=== PATIENT | male | born 1965 | race Caucasian/White ===

== ENCOUNTER 2018-01-16 14:43 | Emergency (ER) | payer OTHER ==
[~2018-01-16] VITALS: Ht 167.6 cm; Wt 99.8 kg
[2018-01-16 15:43] LABS: ABSOLUTE BASOPHIL COUNT 0 /CUMM (0.0-0.2); ABSOLUTE EOSINOPHIL COUNT 0.2 /CUMM (0.0-0.7); ABSOLUTE LYMPH COUNT 1.1 /CUMM (1.2-3.4); ABSOLUTE MONOCYTE COUNT 0.5 /CUMM (0.10-0.60); BASOPHIL % 0.3 % (0.0-2.0); EOSINOPHIL % 1.8 % (0-5); GRANULOCYTE % 79.3 % (42.2-75.2); HEMATOCRIT 41.7 % (42-52); MEAN CORPUSCULAR HGB 27.9 PG (27.0-31.0); MEAN PLATELET VOLUME 7.6 FL (7.4-10.4); PLATELET COUNT 185 /CUMM (130-400); RBC DISTRIBUTION WIDTH 13.1 % (11.5-14.5); RED BLOOD CELL CT 5.08 /CUMM (4.70-6.10); WHITE BLOOD CELL COUNT 8.9 /CUMM (4.8-10.8)
--- NOTE | 2018-01-16 15:44 | ED GENERAL ADULT ---
History of Present Illness General Chief Complaint: General Adult Stated Complaint: "I THINKI HAVE A KIDNEY STONE" Source: patient Exam Limitations: no limitations Vital Signs & Intake/Output Vital Signs & Intake/Output ED Intake and Output 01/17 0000 01/16 1200 Intake Total 1000 Output Total 300 Balance 700 Intake, IV 1000 Output, Urine 300 Patient 220 lb Weight Weight Reported by Patient Measurement Method Allergies Uncoded Allergies: SSRI (CRAMPS 01/16/18) Triage Note: PT C/O B/L FLANK PAIN STATES EARLIER IT RADIATED INTO GROIN. STATES HE HAS BEEN DRINKING LOTS OF LIQUIDS AND URINATING A LOT BECAUSE HE THINKS HE HAS KIDNEY STONES. STATES HE WAS HAVING DIFFICULTY URINATING EARLIER IN THE WEEK Triage Nurses Notes Reviewed? yes Onset: Gradual Duration: week(s): (1), changing over time, continues in ED Timing: single episode today Injury Environment: home Severity: moderate, severe Severity Numbers: 8 No Modifying Factors: none Associated Symptoms: back pain HPI: 52-year-old male past medical history of hypertension, hyperlipidemia, opioid dependence presents for evaluation of back pain. Patient states that symptoms started about one week ago and has been constant. The pain is located in both sides of his lower back. He states that it is worse with movement. He denies any trauma or known triggering event. He states that he has been drinking lots of water because he thought it may be a kidney stone. He states he has a history of an enlarged prostate and some that it is difficult for him to urinate. There's been no bowel or bladder dysfunction or incontinence. No numbness or tingling no fever. He does report some intermittent groin pain but no abdominal pain. No hematuria dysuria chest pain or shortness of breath. He has not been taking any medicine for this. (Golden Perdomo) Past History Travel History Traveled to [place] past 21 day No Medical History Any Pertinent Medical History? see below for history Cardiovascular: hypertension, hyperlipidemia Psychiatric: opioid dependence Surgical History Surgical History: non-contributory Psychosocial History What is your primary language Indonesian Tobacco Use: Current Daily Use Daily Tobacco Use Amount/Type: => 5 Cigarettes daily ETOH Use: denies use Illicit Drug Use: denies illicit drug use Family History Hx Contributory? No (Golden Perdomo) Review of Systems Review of Systems Constitutional: Reports: no symptoms. EENTM: Reports: no symptoms. Respiratory: Reports: no symptoms. Cardiovascular: Reports: no symptoms. GI: Reports: no symptoms. Genitourinary: Reports: no symptoms. Musculoskeletal: Reports: see HPI, back pain, muscle pain, muscle stiffness. Skin: Reports: no symptoms. Neurological/Psychological: Reports: no symptoms. Hematologic/Endocrine: Reports: no symptoms. Immunologic/Allergic: Reports: no symptoms. All Other Systems: Reviewed and Negative (Golden Perdomo) Physical Exam Physical Exam General Appearance: well developed/nourished, no apparent distress, alert, awake Head: atraumatic, normal appearance Eyes: Bilateral: normal appearance, PERRL, EOMI. Ears, Nose, Throat: hearing grossly normal Neck: normal inspection, supple, full range of motion Respiratory: normal breath sounds, chest non-tender, no respiratory distress, lungs clear Cardiovascular: regular rate/rhythm, normal peripheral pulses Peripheral Pulses: 2+ radial (R), 2+ radial (L) Gastrointestinal: normal bowel sounds, soft, non-tender, no organomegaly Back: normal inspection, normal range of motion (WITH PAIN ), vertebral tenderness, NO cva TENDERNESS. lUMBAR SPINE AND PARASPINOUS MUSCLES TENDER TO PALPATION BILATERALLY. nO STEP-OFFS OR DEFORMITIES NO BRUISING SWELLING OR ABRASIONS NO RASHES Extremities: normal inspection, normal range of motion, straight leg raised ( NEGATIVE) Neurologic/Psych: no motor/sensory deficits, awake, alert, oriented x 3, normal gait (WITH PAIN), normal mood/affect Reflexes: 2+: knee (R), knee (L). Skin: intact, normal color, warm/dry Core Measures ACS in differential dx? No CVA/TIA Diagnosis: No Sepsis Present: No Sepsis Focused Exam Completed? No (Golden Perdomo) Progress Differential Diagnoses I considered the following diagnoses in my evaluation of the patient: [Muscle strain, herniated disc, cauda equina, sciatica, kidney stone, pyelonephritis/UTI ] Plan of Care: Orders Procedure Date/time Status URINALYSIS 01/16 1449 Complete COMPREHENSIVE METABOLIC PANEL 01/16 1449 Complete CBC WITHOUT DIFFERENTIAL 01/16 1449 Complete Laboratory Tests 01/16/18 1647: Urine Color YEL, Urine Clarity CLEAR, Urine pH 7.0, Ur Specific Carroll 1.010, Urine Protein NEG, Urine Ketones NEG, Urine Nitrite NEG, Urine Bilirubin NEG, Urine Urobilinogen 0.2, Ur Leukocyte Esterase NEG, Ur Microscopic EXAM NOT REQUIRED, Urine Hemoglobin NEG, Urine Glucose NEG 01/16/18 1533: Anion Gap 8, Estimated GFR > 60, BUN/Creatinine Ratio 20.0, Glucose 124 H, Calcium 9.2, Total Bilirubin 0.8, AST 20, ALT 30, Alkaline Phosphatase 87, Total Protein 6.8, Albumin 3.9, Globulin 2.9, Albumin/Globulin Ratio 1.3, CBC w Diff NO MAN DIFF REQ, RBC 5.08, MCV 82.0, MCH 27.9, MCHC 34.0, RDW 13.1, MPV 7.6, Gran % 79.3 H, Lymphocytes % 12.7 L, Monocytes % 5.9, Eosinophils % 1.8, Basophils % 0.3, Absolute Granulocytes 7.0 H, Absolute Lymphocytes 1.1 L, Absolute Monocytes 0.5, Absolute Eosinophils 0.2, Absolute Basophils 0 Patient seen and evaluated. His pain is very reproducible with range of motion. Is located mostly in his lower back. Currently no flank abdominal or groin pain. Urine does not show any signs of infection or blood. CT scan is negative for any obstructing kidney stones. There is evidence of possible renal cell carcinoma. Patient will be given urology follow-up. Patient states he goes to the [facility] and will have care there. He does not want a urologist from here. Patient was instructed to rest and plenty fluids avoid excessive physical activity. Tylenol ibuprofen Robaxin as needed. Medrol Dosepak as directed. Discussed return to caution's in detail patient appearR well he agrees the plan. Diagnostic Imaging: Viewed by Me: CT Scan. Discussed w/RAD: CT Scan. Radiology Impression: PATIENT: JORGE LUIS WAYNE PRESENT AGE: 52 PATIENT ACCOUNT NO: [id number] : 67 LOCATION: [facility] ORDERING PHYSICIAN: Pablito Vargas MD SERVICE DATE: 01/16/18242 EXAM TYPE: CAT - CT ABD & PELVIS W/O IV CONTRAS EXAMINATION: CT ABDOMEN AND PELVIS WITHOUT CONTRAST CLINICAL INFORMATION: 52-year-old male with flank pain. Evaluate for kidney stone. COMPARISON: CT images of the abdomen from 06/02/2013. TECHNIQUE: Multidetector volumetric imaging was performed from the superior aspect of the liver through the pubic symphysis. Sagittal and coronal reformatted images were obtained on the technologist's workstation. DLP: 1995 mGy-cm (for CT exams of the abdomen and lumbar spine) FINDINGS: LUNG BASES: No acute findings. Old, 0.3 cm calcified granuloma of the right lower lobe. Atherosclerotic calcification of coronary arteries. LIVER, GALLBLADDER, AND BILIARY TREE: Liver has normal size, contour and attenuation. No evidence of hepatic mass or intrahepatic bile duct dilatation. Gallbladder is underdistended and without radiopaque calculi, wall edema or pericholecystic fluid. PANCREAS: Unremarkable. SPLEEN: Unremarkable. ADRENAL GLANDS: Unremarkable. RIGHT KIDNEY AND URETER: 2 cm hypodense, slightly exophytic lesion of the interpolar region, anteriorly, has attenuation of 15 Hounsfield units on these noncontrast images and it appears stable compared to 06/02/2013, compatible with benign renal cyst. No nephrolithiasis, hydroureteronephrosis or perinephric edema. LEFT KIDNEY AND URETER: No nephrolithiasis, hydronephrosis or perinephric edema. A solid mass containing calcifications at the lower pole the left kidney, anteriorly, measures approximately 4.7 x 3.4 x 4.4 cm, compared to 4.1 x 2.9 x 3.6 cm on 06/02/2013. BLADDER: Urinary bladder is nearly completely empty, which may account for its apparent wall thickening. Also, there might be detrusor muscle hypertrophy of the bladder wall. No focal mucosal lesion or calculus. GASTROINTESTINAL TRACT: Stomach is unremarkable. Bowel loops are normal in caliber. Appendix is normal. No evidence of inflammation or obstruction along the gastrointestinal tract. No ascites or pneumoperitoneum. ABDOMINAL WALL: No acute findings. LYMPH NODES: No pathologic sized retroperitoneal, mesenteric or iliac lymph nodes. A chronically enlarged portacaval lymph node is 1.5 cm AP, compared to 1.3 cm AP on 2012. VASCULAR: Atherosclerotic calcification of the abdominal aorta and iliac arteries without aneurysm. PELVIC VISCERA: Prostate gland is unremarkable. No pelvic free fluid. OSSEOUS STRUCTURES: No suspicious osseous lesions. There is an old bone island of the L4 vertebral body. IMPRESSION: 1. No evidence of urolithiasis or urinary tract obstruction. 2. Solid mass with calcifications at the lower pole of the left kidney has increased in size compared to 06/02/2013. This likely represents a slowly growing calcified renal cell carcinoma which currently measures 4.7 x 3.4 x 4.4 cm (compared to 4.1 x 2.9 x 3.6 cm on 2012). DICTATED BY: Maxim Wu MD DATE/TIME DICTATED:01/16/181615 SPLITTING MACHINE FEEDER:CHAVA DATE/TIME TRANSCRIBED:01/16/181615 CONFIDENTIAL, DO NOT COPY WITHOUT APPROPRIATE AUTHORIZATION. <Electronically signed in Other Vendor System> SIGNED BY: Maxim Wu MD 01/16/181635, PATIENT: JORGE LUIS WAYNE PRESENT AGE: 52 PATIENT ACCOUNT NO: [id number] : 67 LOCATION: [facility] ORDERING PHYSICIAN: Golden ALVARZE SERVICE DATE: 01/16/18 EXAM TYPE: CAT - CT LUMB SPINE WO IV CONTRAST EXAMINATION: CT LUMBAR SPINE WITHOUT CONTRAST CLINICAL INFORMATION: Low back pain. COMPARISON: None TECHNIQUE: Helical non-contrast CT images were obtained through the lumbar spine and 1.25 and 2.5 mm axial reconstructions were reviewed along with sagittal and coronal MPRs. DLP: 1995.98 mGy-cm. This dose is inclusive of imaging of the abdomen and pelvis, reported separately. FINDINGS: There are no compression fractures or subluxations. No significant disc space narrowing is evident. Mild endplate spurring is noted laterally at the L2-L4 levels. Mild disc bulge and facet arthropathy are noted at L2-L3. There is a diffuse disc bulge and endplate spurring with mild to moderate facet arthropathy at L3-L4 contributing to mild central canal stenosis and foraminal narrowing. At the L4- L5 level, there is a diffuse disc bulge and facet arthropathy with thickening of the ligamentum flavum contributing to mild to moderate central canal stenosis and ventral thecal sac deformity. There is moderate right foraminal narrowing. Endplate spurring and bulging disc contribute to moderate left foraminal encroachment. There may be a left posterolateral disc protrusion as well. At the L5-S1 level, there is a mild disc bulge and facet arthropathy without central canal stenosis. Bulging disc and endplate spurring contribute to mild to moderate foraminal narrowing, worse on the right side. The paraspinal soft tissues appear normal. A lower pole left renal mass with speckled calcifications is partially visualized and further assessed on the abdominal CT exam. When compared to an abdominal CT study from 05/2013, the mass appears to have increased in size. IMPRESSION: Multilevel lumbar spondylosis with disc bulges and facet arthropathy, more significant at L4-L5 where there is mild to moderate central canal stenosis and moderate bilateral foraminal narrowing. Potential left posterolateral disc protrusion present at this level as well. Mild central canal stenosis at L3-L4 with mild bilateral foraminal narrowing. No compression fractures or subluxations. Partially visualized mass at the lower pole of the left kidney with speckled calcifications, further described on the abdominal CT portion of this study. DICTATED BY: Pablito Snowden MD DATE/TIME DICTATED:01/16 SPLITTING MACHINE FEEDER:CHAVA DATE/TIME TRANSCRIBED:01/16/181609 CONFIDENTIAL, DO NOT COPY WITHOUT APPROPRIATE AUTHORIZATION. Initial ED EKG: none (Jhonatan ALVAREZ,Golden) Departure Departure Disposition: HOME OR SELF CARE Condition: Stable Clinical Impression Primary Impression: Low back pain Qualifiers: Chronicity: acute Back pain laterality: bilateral Sciatica presence : without sciatica Qualified Code: M54.5 - Low back pain Referrals: Unknown (PCP/Family) Additional Instructions: Rest, avoid excessive physical activity heavy lifting or bending. Take Medrol Dosepak as directed for the full course. Use ibuprofen 800 mg every 8 hours with food as needed for pain. Robaxin Is a muscle relaxer that can also be used every 8 hours as needed. This may cause drowsiness. Make a follow-up appointment with your primary care doctor urologist and back specialist as soon as possible. Monitor symptoms closely. Return with worsening pain, fever, bowel/bladder dysfunction, numbness, tingling or any other concerns. Please go over all results of today's visit with your primary care doctor. Contact your primary care doctor to let them know you were here in the emergency room. There may be nonspecific findings which may not be related to your visit today here in the emergency room but may require further evaluation and chronic monitoring by your primary care doctor. If you had a laceration today the chance of foreign body always remains. You should follow-up with your primary care doctor for recheck in 3-5 days for a wound check. If you had an x-ray done there is a chance that a fracture could have been missed on initial read and you should follow-up with your primary care doctor for repeat x-rays if symptoms persist. If your blood pressure was elevated here in the emergency room please have rechecked by her primary care doctor within the next 48 hours by your primary care doctor. If you were prescribed a narcotic here in the emergency room or any type of controlled substances you're not allowed to drive while taking this medication or operate any type of heavy machinery. Narcotics can make you feel lightheaded dizziness nausea and can cause constipation. You may need to knot picker cloth a stool softener. Thank you for choosing [facility] emergency room. Please return to the emergency room immediately if you have any other concerns worsening of symptoms. Departure Forms: Customer Survey General Discharge Information (Golden Perdomo) PA/PATENT COUNSEL Co-Sign Statement Statement: ED Attending supervision documentation- [] I saw and evaluated the patient. I have also reviewed all the pertinent lab results and diagnostic results. I agree with the findings and the plan of care as documented in the PA's/PATENT COUNSEL's documentation. [X] I have reviewed the ED Record and agree with the PA's/PATENT COUNSEL's documentation. [] Additions or exceptions (if any) to the PAs/PATENT COUNSEL's note and plan are summarized below: [] (Alicia MACIAS,Pablito Judge) Critical Care Note Critical Care Note Critical Care Time: non-applicable (Golden Perdomo)
--- NOTE | 2018-01-16 16:24 | CT SCAN REPORT ---
EXAMINATION: CT LUMBAR SPINE WITHOUT CONTRAST CLINICAL INFORMATION: Low back pain. COMPARISON: None TECHNIQUE: Helical non-contrast CT images were obtained through the lumbar spine and 1.25 and 2.5 mm axial reconstructions were reviewed along with sagittal and coronal MPRs. DLP: 1995.98 mGy-cm. This dose is inclusive of imaging of the abdomen and pelvis, reported separately. FINDINGS: There are no compression fractures or subluxations. No significant disc space narrowing is evident. Mild endplate spurring is noted laterally at the L2-L4 levels. Mild disc bulge and facet arthropathy are noted at L2-L3. There is a diffuse disc bulge and endplate spurring with mild to moderate facet arthropathy at L3-L4 contributing to mild central canal stenosis and foraminal narrowing. At the L4-L5 level, there is a diffuse disc bulge and facet arthropathy with thickening of the ligamentum flavum contributing to mild to moderate central canal stenosis and ventral thecal sac deformity. There is moderate right foraminal narrowing. Endplate spurring and bulging disc contribute to moderate left foraminal encroachment. There may be a left posterolateral disc protrusion as well. At the L5-S1 level, there is a mild disc bulge and facet arthropathy without central canal stenosis. Bulging disc and endplate spurring contribute to mild to moderate foraminal narrowing, worse on the right side. The paraspinal soft tissues appear normal. A lower pole left renal mass with speckled calcifications is partially visualized and further assessed on the abdominal CT exam. When compared to an abdominal CT study from 05/2013, the mass appears to have increased in size. IMPRESSION: Multilevel lumbar spondylosis with disc bulges and facet arthropathy, more significant at L4-L5 where there is mild to moderate central canal stenosis and moderate bilateral foraminal narrowing. Potential left posterolateral disc protrusion present at this level as well. Mild central canal stenosis at L3-L4 with mild bilateral foraminal narrowing. No compression fractures or subluxations. Partially visualized mass at the lower pole of the left kidney with speckled calcifications, further described on the abdominal CT portion of this study.
--- NOTE | 2018-01-16 16:36 | CT SCAN REPORT ---
EXAMINATION: CT ABDOMEN AND PELVIS WITHOUT CONTRAST CLINICAL INFORMATION: 52-year-old male with flank pain. Evaluate for kidney stone. COMPARISON: CT images of the abdomen from 06/02/2013. TECHNIQUE: Multidetector volumetric imaging was performed from the superior aspect of the liver through the pubic symphysis. Sagittal and coronal reformatted images were obtained on the technologist's workstation. DLP: 1995 mGy-cm (for CT exams of the abdomen and lumbar spine) FINDINGS: LUNG BASES: No acute findings. Old, 0.3 cm calcified granuloma of the right lower lobe. Atherosclerotic calcification of coronary arteries. LIVER, GALLBLADDER, AND BILIARY TREE: Liver has normal size, contour and attenuation. No evidence of hepatic mass or intrahepatic bile duct dilatation. Gallbladder is underdistended and without radiopaque calculi, wall edema or pericholecystic fluid. PANCREAS: Unremarkable. SPLEEN: Unremarkable. ADRENAL GLANDS: Unremarkable. RIGHT KIDNEY AND URETER: 2 cm hypodense, slightly exophytic lesion of the interpolar region, anteriorly, has attenuation of 15 Hounsfield units on these noncontrast images and it appears stable compared to 06/02/2013, compatible with benign renal cyst. No nephrolithiasis, hydroureteronephrosis or perinephric edema. LEFT KIDNEY AND URETER: No nephrolithiasis, hydronephrosis or perinephric edema. A solid mass containing calcifications at the lower pole the left kidney, anteriorly, measures approximately 4.7 x 3.4 x 4.4 cm, compared to 4.1 x 2.9 x 3.6 cm on 06/02/2013. BLADDER: Urinary bladder is nearly completely empty, which may account for its apparent wall thickening. Also, there might be detrusor muscle hypertrophy of the bladder wall. No focal mucosal lesion or calculus. GASTROINTESTINAL TRACT: Stomach is unremarkable. Bowel loops are normal in caliber. Appendix is normal. No evidence of inflammation or obstruction along the gastrointestinal tract. No ascites or pneumoperitoneum. ABDOMINAL WALL: No acute findings. LYMPH NODES: No pathologic sized retroperitoneal, mesenteric or iliac lymph nodes. A chronically enlarged portacaval lymph node is 1.5 cm AP, compared to 1.3 cm AP on 06/02/2013. VASCULAR: Atherosclerotic calcification of the abdominal aorta and iliac arteries without aneurysm. PELVIC VISCERA: Prostate gland is unremarkable. No pelvic free fluid. OSSEOUS STRUCTURES: No suspicious osseous lesions. There is an old bone island of the L4 vertebral body. IMPRESSION: 1. No evidence of urolithiasis or urinary tract obstruction. 2. Solid mass with calcifications at the lower pole of the left kidney has increased in size compared to 06/02/2013. This likely represents a slowly growing calcified renal cell carcinoma which currently measures 4.7 x 3.4 x 4.4 cm (compared to 4.1 x 2.9 x 3.6 cm on 06/02/2013).
[2018-01-16 17:56] VITALS: BP 180/86
== END 2018-01-16 17:57 ==
LOC: ERH 14:43
PROVIDERS: Physician Assistant Medical
DX: M54.5 Low back pain (principal); I10 Essential (primary) hypertension; Z72.0 Tobacco use
CPT/HCPCS: 74176; 81003; 96374; J1885